=== PATIENT | female | born 1990 | race Caucasian/White ===

== ENCOUNTER 2024-02-02 21:24 | Emergency (ER) | payer BC ==
[~2024-02-02] VITALS: Ht 157.4 cm; Wt 45.4 kg
[2024-02-02 21:52] LABS: BILIRUBIN Negative (Negative); BLOOD 3+ (Negative); CLARITY Clear (Clear); COLOR Yellow (Yellow); GLUCOSE Negative (Negative); KETONE Negative (Negative); LEUKO ESTERASE Negative (Negative); NITRITE Negative (Negative); PH 6.5 (4.5-8.0); SPECIFIC GRAVITY <= 1.005 (1.001-1.030); UROBILINOGEN 0.2 E.U./dl (0.0-1.0)
[2024-02-02 22:12] LABS: BASO % 0.7 % (0.0-1.0); EOS % 0.7 % (1.0-4.0); HEMATOCRIT 37.5 % (42.0-52.0); LYMPH # 1.6 10*3/uL (1.3-4.4); LYMPH % 26.4 % (27.0-41.0); MEAN CELL VOLUME 97.2 fl (80.0-94.0); MEAN CORPUSCULAR HGB 31.1 pg (27.0-31.0); MEAN PLATELET VOLUME 10.5 fl (9.6-12.3); MONO # 0.4 10*3/uL (0.1-1.0); MONO % 5.8 % (3.0-9.0); NEUT % 66.2 % (47.0-73.0); PLATELET COUNT AUTOMATED 198 10*3/uL (130-400); RED BLOOD COUNT 3.86 10*6/uL (4.50-5.90); RED CELL DISTRI WIDTH 12.6 % (0-14.5)
[2024-02-02 22:12] LABS: RBC 51-100 rbc/hpf (0-2); WBC 0-2 wbc/hpf (0-5)
[2024-02-02 22:30] LABS: BUN 10 mg/dl (9-23); CHLORIDE 105 mmol/L (98-107); POTASSIUM 3.3 mmol/L (3.4-5.1)
[2024-02-02 22:31] LABS: BETA-HCG, QUANT < 3.0 mIU/mL (3-10)
[2024-02-02] MEDS ORDERED: POTASSIUM CHLORIDE 20 MEQ TAB PO ONE (23:30)
[2024-02-02] MEDS ORDERED: FLOMAX0.4 MG PO (23:31)
[2024-02-02] MEDS ORDERED: NAPROSYN500 MG PO (23:31)
== END 2024-02-02 23:51 | disposition home or self-care (01) ==
LOC: ED 21:24 → EDSEX 21:29 → ED 21:29
PROVIDERS: Emergency Medicine; Nurse Practitioner
DX: N20.0 Calculus of kidney (principal)

== ENCOUNTER 2024-02-10 12:10 | Emergency (ER) | payer BC ==
[~2024-02-10] VITALS: Ht 157.4 cm; Wt 47.6 kg
[~2024-02-10 12:10] MED LIST: FLOMAX0.4 MG PO; NAPROSYN500 MG PO
[2024-02-10 12:40] LABS: BASO % 0.2 % (0.0-1.0); EOS # 0.1 10*3/uL (0.0-0.4); EOS % 1.2 % (1.0-4.0); HEMATOCRIT 39.3 % (37.0-47.0); LYMPH # 1.2 10*3/uL (1.3-4.4); LYMPH % 29.5 % (27.0-41.0); MEAN CORPUSCULAR HGB 30.9 pg (27.0-31.0); MEAN CORPUSCULAR HGB CONC 31.8 g/dl (33.0-37.0); MEAN PLATELET VOLUME 10.2 fl (9.6-12.3); MONO # 0.2 10*3/uL (0.1-1.0); MONO % 5.5 % (3.0-9.0); NEUT # 2.7 10*3/uL (2.3-7.9); NEUT % 63.4 % (47.0-73.0); PLATELET COUNT AUTOMATED 173 10*3/uL (130-400); RED BLOOD COUNT 4.05 10*6/uL (4.10-5.10); RED CELL DISTRI WIDTH 12.5 % (0-14.5); WHITE BLOOD COUNT 4.2 10*3/uL (4.8-10.8)
[2024-02-10 13:02] LABS: ALKALINE PHOSPHATASE 83 U/L (46-116); BUN 15 mg/dl (9-23); CHLORIDE 105 mmol/L (98-107); POTASSIUM 3.3 mmol/L (3.4-5.1); SGPT/ALT 9 U/L (5-49); TOTAL PROTEIN 7.4 gm/dL (6.0-8.0)
[2024-02-10 13:06] LABS: BETA-HCG, QUANT < 3.0 mIU/mL (3-10)
[2024-02-10 13:07] LABS: BILIRUBIN Negative (Negative); BLOOD 3+ (Negative); CLARITY Clear (Clear); COLOR Yellow (Yellow); GLUCOSE Negative (Negative); KETONE Negative (Negative); LEUKO ESTERASE Trace (Negative); NITRITE Negative (Negative); PH 5.5 (4.5-8.0); SPECIFIC GRAVITY 1.025 (1.001-1.030)
[2024-02-10 13:24] LABS: BACTERIA 3+; MUCOUS 3+; RBC TNTC rbc/hpf (0-2)
== END 2024-02-10 13:50 | disposition home or self-care (01) ==
LOC: ED 12:10
PROVIDERS: Physician Assistant Medical
DX: N92.6 Irregular menstruation, unspecified (principal)

== ENCOUNTER → 2024-05-31 | Emergency (ER) | payer BC ==
[~2024-05-31] VITALS: Ht 157.4 cm; Wt 49.0 kg
[~2024-05-31] MED LIST changes: +POTASSIUM CHLORIDE 20 MEQ TAB PO ONE
[2024-05-31 20:49] LABS: BASO % 0.6 % (0.0-1.0); EOS % 0.7 % (1.0-4.0); HEMATOCRIT 35.7 % (37.0-47.0); LYMPH # 1.6 10*3/uL (1.3-4.4); LYMPH % 30.1 % (27.0-41.0); MEAN CELL VOLUME 94.7 fl (81.0-99.0); MEAN CORPUSCULAR HGB 31.6 pg (27.0-31.0); MEAN CORPUSCULAR HGB CONC 33.3 g/dl (33.0-37.0); MEAN PLATELET VOLUME 10.4 fl (9.6-12.3); MONO # 0.4 10*3/uL (0.1-1.0); MONO % 6.6 % (3.0-9.0); NEUT # 3.4 10*3/uL (2.3-7.9); NEUT % 61.8 % (47.0-73.0); PLATELET COUNT AUTOMATED 229 10*3/uL (130-400); RED BLOOD COUNT 3.77 10*6/uL (4.10-5.10); RED CELL DISTRI WIDTH 12.1 % (0-14.5); WHITE BLOOD COUNT 5.5 10*3/uL (4.8-10.8)
[2024-05-31 21:15] LABS: ALKALINE PHOSPHATASE 73 U/L (46-116); BUN 9 mg/dl (9-23); CHLORIDE 105 mmol/L (98-107); POTASSIUM 3.1 mmol/L (3.4-5.1); SGPT/ALT 11 U/L (5-49); TOTAL PROTEIN 7.3 gm/dL (6.0-8.0)
== END ==
LOC: ED 20:05
PROVIDERS: Internal Medicine
DX: R07.89 Other chest pain (principal); E87.6 Hypokalemia; R06.02 Shortness of breath